=== PATIENT | male | born 1955 | race Caucasian/White ===

== ENCOUNTER → 2023-07-07 | Outpatient (CLI) | payer BC | LOC: M PLAIMG 13:06 | PROVIDERS: ATTEND Internal Medicine | DX: R51.9 Headache, unspecified (principal) ==

== ENCOUNTER → 2024-06-21 | Outpatient (CLI) | payer BC | LOC: M RAD 07:57 | PROVIDERS: ATTEND Internal Medicine | DX: I65.23 Occlusion and stenosis of bilateral carotid arteries (principal) ==

== ENCOUNTER 2024-07-19 10:07 | Day surgery (SDC) | payer BC ==
[~2024-07-19] VITALS: Ht 182.9 cm; Wt 89.6 kg
[~2024-07-19 10:07] MED LIST: LIDOCAINE 2% 100MG/5ML SDV (FOR ANES.) As Ordered ONE; OMEP-173 PO; ROSU5TAB49 PO; propofoL 500 MG/50 ML VIAL As Ordered ONE
[2024-07-19] MEDS ORDERED: fentaNYL 100 MCG/2 ML INJECTION As Ordered ONE (12:21)
[2024-07-19] MEDS ORDERED: propofoL 200 MG/20 ML VIAL As Ordered ONE (12:59)
[2024-07-19 13:27] VITALS: BP 117/70; O2SAT 99
== END 2024-07-19 13:35 | disposition home or self-care (01) ==
LOC: M OPP 10:07
PROVIDERS: ATTEND Internal Medicine Gastroenterology
DX: Z12.11 Encounter for screening for malignant neoplasm of colon (principal); Z12.12 Encounter for screening for malignant neoplasm of rectum; D12.3 Benign neoplasm of transverse colon; K29.70 Gastritis, unspecified, without bleeding; K44.9 Diaphragmatic hernia without obstruction or gangrene; R12 Heartburn; E78.00 Pure hypercholesterolemia, unspecified; Z79.899 Other long term (current) drug therapy
CPT/HCPCS: 43239; 45385; 88305; J3010

== ENCOUNTER → 2024-07-26 | Outpatient (CLI) | payer BC ==
[~2024-07-26] MED LIST changes: -LIDOCAINE 2% 100MG/5ML SDV (FOR ANES.) As Ordered ONE; -propofoL 500 MG/50 ML VIAL As Ordered ONE
== END ==
LOC: M LAB 08:57
PROVIDERS: ATTEND Urology
DX: Z80.42 Family history of malignant neoplasm of prostate (principal)

== ENCOUNTER → 2024-09-22 | Outpatient (REF) | payer BC | LOC: M SMT 13:15 | PROVIDERS: ATTEND Urology | DX: N48.89 Other specified disorders of penis (principal) ==

== ENCOUNTER → 2024-10-28 | Outpatient (CLI) | payer BC | LOC: M SOG 06:56 | PROVIDERS: ATTEND Orthopaedic Surgery | DX: M19.011 Primary osteoarthritis, right shoulder (principal) ==

== ENCOUNTER → 2024-12-15 | Outpatient (CLI) | payer BC | LOC: M RAD 07:42 | PROVIDERS: ATTEND Orthopaedic Surgery | DX: M75.121 Complete rotator cuff tear or rupture of right shoulder, not specified as traumatic (principal); M19.041 Primary osteoarthritis, right hand ==